=== PATIENT | female | born 1950 | race Caucasian/White ===

== ENCOUNTER 2017-03-10 15:00 | Outpatient (RCR) | payer OTHER | END 2017-03-29 | LOC: PT 15:00 | PROVIDERS: ATTEND Orthopaedic Surgery Hand Surgery | DX: M75.101 Unspecified rotator cuff tear or rupture of right shoulder, not specified as traumatic (principal); M25.511 Pain in right shoulder; M62.81 Muscle weakness (generalized) ==

== ENCOUNTER 2017-09-25 10:58 | Outpatient (RCR) | payer OTHER | END 2017-09-26 | LOC: PT 10:58 | PROVIDERS: ATTEND Orthopaedic Surgery Sports Medicine | DX: M75.101 Unspecified rotator cuff tear or rupture of right shoulder, not specified as traumatic (principal); M25.511 Pain in right shoulder; M25.611 Stiffness of right shoulder, not elsewhere classified; M62.81 Muscle weakness (generalized) ==

== ENCOUNTER 2017-10-26 11:00 | Outpatient (RCR) | payer MEDICARE, OTHER | END 2017-10-27 | LOC: PT 11:00 | PROVIDERS: ATTEND Orthopaedic Surgery Sports Medicine | DX: M75.101 Unspecified rotator cuff tear or rupture of right shoulder, not specified as traumatic (principal); M75.41 Impingement syndrome of right shoulder; M75.21 Bicipital tendinitis, right shoulder; M25.511 Pain in right shoulder; M25.611 Stiffness of right shoulder, not elsewhere classified; M62.81 Muscle weakness (generalized) ==

== ENCOUNTER → 2017-11-27 | Outpatient (RCR) | payer MEDICARE | LOC: PT 10-28 11:10 | PROVIDERS: ATTEND Orthopaedic Surgery Sports Medicine | DX: M75.101 Unspecified rotator cuff tear or rupture of right shoulder, not specified as traumatic (principal); M75.21 Bicipital tendinitis, right shoulder; M25.511 Pain in right shoulder; M25.611 Stiffness of right shoulder, not elsewhere classified; M62.81 Muscle weakness (generalized) | CPT/HCPCS: 97010 ×8; 97110 ×14; 97112; 97139; 97140 ×7; G8984 ×2; G8985 ×2 ==

== ENCOUNTER 2017-12-25 11:00 | Outpatient (RCR) | payer MEDICARE | END 2017-12-27 | LOC: PT 11:00 | PROVIDERS: ATTEND Orthopaedic Surgery Sports Medicine | DX: M75.101 Unspecified rotator cuff tear or rupture of right shoulder, not specified as traumatic (principal); M75.41 Impingement syndrome of right shoulder; M75.21 Bicipital tendinitis, right shoulder; M25.511 Pain in right shoulder; M25.611 Stiffness of right shoulder, not elsewhere classified; M62.81 Muscle weakness (generalized) | CPT/HCPCS: 97010 ×5; 97110 ×11; 97112; G8984; G8985 ==

== ENCOUNTER → 2018-01-27 | Outpatient (RCR) | payer MEDICARE | LOC: PT 12-28 11:37 | PROVIDERS: ATTEND Orthopaedic Surgery Sports Medicine | DX: M75.101 Unspecified rotator cuff tear or rupture of right shoulder, not specified as traumatic (principal); M75.81 Other shoulder lesions, right shoulder; M25.511 Pain in right shoulder; M25.611 Stiffness of right shoulder, not elsewhere classified; M62.81 Muscle weakness (generalized) | CPT/HCPCS: 97010; 97110 ×10; G8984; G8985 ==

== ENCOUNTER 2018-02-23 11:00 | Outpatient (RCR) | payer MEDICARE | END 2018-02-26 | LOC: PT 11:00 | PROVIDERS: ATTEND Orthopaedic Surgery Sports Medicine | DX: M75.41 Impingement syndrome of right shoulder (principal); M75.21 Bicipital tendinitis, right shoulder; M25.511 Pain in right shoulder; M25.611 Stiffness of right shoulder, not elsewhere classified; M62.81 Muscle weakness (generalized) | CPT/HCPCS: 97110 ×5; 97139; G8984; G8985 ==

== ENCOUNTER 2020-03-26 15:00 | Outpatient (RCR) | payer MEDICARE | END 2020-03-29 | LOC: PT 15:00 | PROVIDERS: ATTEND Orthopaedic Surgery | DX: S92.351D Displaced fracture of fifth metatarsal bone, right foot, subsequent encounter for fracture with routine healing (principal); M20.21 Hallux rigidus, right foot; M21.612 Bunion of left foot; M20.42 Other hammer toe(s) (acquired), left foot; R26.2 Difficulty in walking, not elsewhere classified; M62.81 Muscle weakness (generalized) ==

== ENCOUNTER 2020-04-25 15:00 | Outpatient (RCR) | payer MEDICARE, OTHER | END 2020-04-29 | LOC: PT 15:00 | PROVIDERS: ATTEND Orthopaedic Surgery | DX: S92.351D Displaced fracture of fifth metatarsal bone, right foot, subsequent encounter for fracture with routine healing (principal); M20.21 Hallux rigidus, right foot; M21.612 Bunion of left foot; M20.42 Other hammer toe(s) (acquired), left foot; R26.2 Difficulty in walking, not elsewhere classified; M62.81 Muscle weakness (generalized) ==

== ENCOUNTER 2020-05-24 16:00 | Outpatient (RCR) | payer MEDICARE | END 2020-05-27 | LOC: PT 16:00 | PROVIDERS: ATTEND Orthopaedic Surgery | DX: S92.351D Displaced fracture of fifth metatarsal bone, right foot, subsequent encounter for fracture with routine healing (principal); M20.21 Hallux rigidus, right foot; M21.612 Bunion of left foot; R26.2 Difficulty in walking, not elsewhere classified | CPT/HCPCS: 97139 ==

== ENCOUNTER 2020-06-06 15:00 | Outpatient (RCR) | payer MEDICARE | END 2020-06-27 | LOC: PT 15:00 | PROVIDERS: ATTEND Orthopaedic Surgery | DX: S92.351D Displaced fracture of fifth metatarsal bone, right foot, subsequent encounter for fracture with routine healing (principal); R26.2 Difficulty in walking, not elsewhere classified; M62.81 Muscle weakness (generalized); M20.21 Hallux rigidus, right foot; M21.612 Bunion of left foot; M67.80 Other specified disorders of synovium and tendon, unspecified site ==

== ENCOUNTER 2023-11-26 15:00 | Outpatient (RCR) | payer MEDICARE | END 2023-11-28 | LOC: PT 15:00 | PROVIDERS: ATTEND Orthopaedic Surgery Sports Medicine | DX: M25.561 Pain in right knee (principal) ==

== ENCOUNTER 2023-12-24 15:00 | Outpatient (RCR) | payer MEDICARE | END 2023-12-28 | LOC: PT 15:00 | PROVIDERS: ATTEND Orthopaedic Surgery Sports Medicine | DX: S83.241A Other tear of medial meniscus, current injury, right knee, initial encounter (principal) ==

== ENCOUNTER 2024-01-26 16:00 | Outpatient (RCR) | payer MEDICARE | END 2024-01-28 | LOC: PT 16:00 | PROVIDERS: ATTEND Orthopaedic Surgery Sports Medicine | DX: S83.241D Other tear of medial meniscus, current injury, right knee, subsequent encounter (principal); M25.561 Pain in right knee; M25.461 Effusion, right knee; M62.81 Muscle weakness (generalized) ==

== ENCOUNTER 2024-02-23 15:00 | Outpatient (RCR) | payer MEDICARE | END 2024-02-27 | LOC: PT 15:00 | PROVIDERS: ATTEND Orthopaedic Surgery Sports Medicine | DX: S83.241D Other tear of medial meniscus, current injury, right knee, subsequent encounter (principal); M62.81 Muscle weakness (generalized); M25.561 Pain in right knee; M25.461 Effusion, right knee ==

== ENCOUNTER 2024-03-17 15:00 | Outpatient (RCR) | payer MEDICARE | END 2024-03-29 | LOC: PT 15:00 | PROVIDERS: ATTEND Orthopaedic Surgery Sports Medicine | DX: S83.241D Other tear of medial meniscus, current injury, right knee, subsequent encounter (principal); M25.561 Pain in right knee; M25.461 Effusion, right knee; M62.81 Muscle weakness (generalized) ==

== ENCOUNTER 2024-04-28 17:00 | Outpatient (RCR) | payer MEDICARE | END 2024-04-29 | LOC: PT 17:00 | PROVIDERS: ATTEND Orthopaedic Surgery Sports Medicine | DX: S83.241D Other tear of medial meniscus, current injury, right knee, subsequent encounter (principal); M25.561 Pain in right knee; M25.461 Effusion, right knee; M62.81 Muscle weakness (generalized) ==